=== PATIENT | male | born 1950 | race Caucasian/White ===

== ENCOUNTER → 2019-04-12 | Outpatient (CLI) | payer OTHER ==
[~2019-04-12] MED LIST: ADULT LOW DOSE81 MG PO; ASPIRIN EC325 MG PO; ASPIRIN325 PO; B COMPLETE1 EAC1 PO; BAYER CHEWABLE81 MG PO; CARDURA XL4 MG PO; CENTRUM SILVER1 EAC2 PO; CRESTOR10 MG PO; CRESTOR20 MG PO; EFFIENT5 MG PO; FLOMAX0.4 MG PO; GARLIC OIL1000 MG PO; HUMIRA20 MG/0.4 SQ; LEVOTHYROXIN0.025 MG PO; LISINOPRIL10 MG PO; LOPRESSOR25 PO; METFORMIN HCL500 MG PO; NORCO 5-325 TA1 EACH PO; OXYCODONE HCL 55 MG PO; PLAVIX 75 MG TA75 M1 PO; PRAVACHOL40 MG PO; PRINIVIL10 MG PO; PROZAC 20 MG20 MG PO; PROZAC40 MG PO; SORIATANE25 MG PO; SYNTHROID25 MCG PO; TESTIM5 GM TD; TESTIM5 GM TOP; XARELTO10 MG PO; ZINC50 M2 PO; ZOCOR20 MG PO
== END ==
LOC: M.ULTRA 07:15
DX: R16.0 Hepatomegaly, not elsewhere classified (principal); R74.8 Abnormal levels of other serum enzymes